=== PATIENT | male | born 1935 ===

== ENCOUNTER 2019-02-05 11:52 | Outpatient (CLI) | payer MEDICARE ==
--- NOTE | 2019-02-05 13:07 | ULT ---
Bilateral renal ultrasound CLINICAL INDICATION: Renal insufficiency, renal cyst COMPARISON: None FINDINGS: Right kidney: There is an anechoic cystic lesion seen in the midportion right kidney measuring 1.6 cm which demonstrates sonographic characteristics most compatible with a simple cyst. There is an additional hypoechoic lesion at the more posterior aspect of the superior pole right kidney measuring 2 cm in maximal dimensions. Internal echoes are seen within this cystic lesion. This likely also represents a cyst with internal echoes probably artifactual in origin. However, this is unable to be definitely determined given depth of the lesion related to the skin surface. No hydronephrosis or renal calculus is seen on the right. The right kidney measures 9.1 cm x 4.8 cm. Left kidney: There is no evidence of a renal mass, renal calculus, or hydronephrosis. The left kidney measures 8.7 cm x 4.4 cm. Urinary bladder: Normal in appearance for degree of distention.. The ureteral jets are visualized justin aterally. IMPRESSION: 1. Difficult to characterize cystic lesion superior pole right kidney. This likely represents a cyst, but this is difficult to definitively characterize due to depth of the lesion from the skin surface limiting evaluation. The internal echoes within this lesion may represent artifact. Follow-up ultrasound examination versus CT scan is recommended for further evaluation. 2. Cyst midportion right kidney. 3. Normal appearance left kidney. 4. No evidence of hydronephrosis bilaterally
== END 2019-02-05 11:53 | disposition home or self-care (01) ==
LOC: BICULT 11:52
PROVIDERS: ATTEND Urology
DX: N28.1 Cyst of kidney, acquired (principal); N28.9 Disorder of kidney and ureter, unspecified; N40.0 Benign prostatic hyperplasia without lower urinary tract symptoms
CPT/HCPCS: 76770